=== PATIENT | male | born 2000 | race Caucasian/White ===

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

== ENCOUNTER 2023-12-31 20:49 | Emergency (ER) | payer OTHER, SELFPAY ==
[2023-12-31 21:02] VITALS: BP 137/73; PULSE 99; RESP 18; TEMP 36.9; O2SAT 97; BMI 29.0
--- NOTE | 2023-12-31 23:05 | PC.NURSE ---
PT in hallway bed, hives present on chest, back and trunk. PT denies any SOB, cough, wheeze, or nausea/vomiting. PT refused IV placement at this time and wishes to see provider first. PT is in no apparent distress.
--- NOTE | 2023-12-31 23:14 | ED.GENADULT ---
HPI - General Adult General Chief complaint: Allergic Reaction Stated complaint: allergic reaction, no epi. No known allergy Time Seen by Provider: 12/31/23 23:04 Source: patient Mode of arrival: ambulatory Limitations: no limitations History of Present Illness HPI narrative: 23 yold healthy male presents to the ED for generalized allergic reaction intermittently since . patient states generalized hives. patietn denies ever having swelling of lips, tongue, or sensatin of throat closing. patient denies any shortness of breath, fever, or chills. patient states symptoms started after girlfriedn used new detergents to clean clothes Related Data Previous Rx's Medication Instructions Recorded diphenhydramine HCl 25 mg capsule 25 mg PO TID PRN allergic reaction 01/01/24 (Benadryl) 7 days #21 caps famotidine 20 mg tablet (Pepcid) 20 mg PO BID 7 days #14 tabs 01/01/24 prednisone 20 mg tablet 40 mg (2 x 20 mg) PO DAILY 5 days 01/01/24 #10 tabs Allergies Allergy/AdvReac Type Severity Reaction Status Date / Time latex Allergy Mild Unknown Verified 12/31/23 21:01 Review of Systems Review of Systems: generalized ithcy hives Yes all other systems are reviewed and are negative PMFSH Social History Social History Smoked in Last 30 Days: No Use of substances other than those prescribed or required for medical reasons: No Advance Directives: No Advance Directives Information Provided: No Physical Exam ED Vital Signs: Vital Signs - 24 hr 12/31/23 21:02 Temperature 98.5 F Pulse Rate 99 Respiratory Rate 18 Blood Pressure 137/73 Pulse Oximetry 97 Oxygen Delivery Method Room Air BMI result Body Mass Index 29.0 Const General: cooperative, healthy appearing, comfortable, no acute distress, well developed, alert, awake and Physically active Orientation/consciousness: oriented to person, oriented to place, oriented to time and patient oriented x3 HENMT Other: negative for lip swelling, tongue swelling, uvula swelling, chest pain, or shortness of breath. Head: Yes normal to inspection, Yes No palpable skull fracture present, Yes normocephalic, Yes atraumatic and No abrasion Eyes General: appearance normal, both eyes and all related structures Neck Other: positive for hives Neck: Yes normal visual inspection, Yes full ROM, Yes no lymphadenopathy, Yes no meningeal signs, Yes trachea midline, Yes supple, No anterior neck swelling and No tender Chest Other: hives Chest palpation & inspection: normal inspection of the chest and normal palpation of entire chest wall Resp Effort & Inspection: normal respiratory effort and able to speak in complete sentences Auscultation: clear to auscultation bilaterally Cardio Jugular venous distension: no JVD Heart sounds: S1 normal heart sound present and S2 normal heart sound present GI Other: hives Inspection: Yes normal to inspection Palpation (GI): Soft to palpation, not firm, nontender, no guarding and not rigid General: Yes no CVA tenderness Back/Spine/Pelvis Back: no CVA tenderness and No back tenderness Skin General skin exam: no rashes or lesions noted, elasticity normal and turgor normal Neuro General: oriented to person, oriented to place, oriented to time, patient oriented x3, gait normal, tone normal, moves all extremities, Normal light touch and pain sensation, no meningeal signs, no focal motor deficits, CN's II-XI intact bilaterally and normal sensation to monofilament Extrem Other: positive for bilateral upper extremities hives General: Yes normal to inspection and Yes full ROM Psych Appearance: grossly normal, well kempt and not disheveled Medications Administered Discontinued Medications Generic Name Dose Route Start Last Admin Trade Name Freq PRN Reason Stop Dose Admin Diphenhydramine HCl 50 mg 12/31/23 23:12 12/31/23 23:19 Diphenhydramine Hcl 25 Mg Capsule PO 12/31/23 23:13 50 mg ONCE ONE Administration Famotidine 20 mg 12/31/23 23:12 12/31/23 23:19 Famotidine 20 Mg Tablet PO 12/31/23 23:13 20 mg ONCE ONE Administration Prednisone 60 mg 12/31/23 23:12 12/31/23 23:19 Prednisone 20 Mg Tablet PO 12/31/23 23:13 60 mg ONCE ONE Administration Medical Decision Making Medical Decision Making MDM Narrative: 23-year-old male presents to ED for allergic reaction intermittently since . Patient states having hives since 11:00 this morning and has been the same. Patient denies any shortness of breath or lip swelling. Patient stable. Will give Benadryl prednisone and Pepcid. 1:09pm. Patient to be discharged with Benadryl Pepcid and prednisone. Patient feels better. Hives improving. Patient explained worrisome sign informed to return to the ED for has them. Patient informed to follow-up with primary care provider Differential Diagnosis Differential Diagnoses: The differential diagnosis associated with the presentation includes (Allergic reaction, anaphylaxis, you to [place],) Admission/Observation Consideration of admission/observation: Escalation of care including admission/observation considered Independent Historian Clinical information obtained from an independent historian. History obtained from or confirmed by: Other (Patient) External Record Review External record reviewed: Other (Prior visits) Prescription Management I considered prescription management with: Other (Benadryl, prednisone, Pepcid) Discharge Plan Discharge Clinical Impression: Allergic reaction Patient Disposition: Home, Self-Care Instructions: General Allergic Reaction (ED) Additional Instructions: Return to the ED immediately for any swelling of lips, swelling of tongue, sensation of throat closing, chest pain, shortness of breath, worsening rash, fever, chills, any other concerning symptoms. Prescriptions: New prednisone 20 mg tablet 40 mg PO DAILY 5 Days Qty: 10 0RF diphenhydramine HCl [Benadryl] 25 mg capsule 25 mg PO TID PRN (Reason: allergic reaction) 7 Days Qty: 21 0RF famotidine [Pepcid] 20 mg tablet 20 mg PO BID 7 Days Qty: 14 0RF Referrals: [facility] [place] [facility] [Provider Group] (Allergic reaction) Stand Alone Forms: Work/School Release Interventions: ED Discharge Assessment Last Done: 01/01/24 01:37 Discharge Date/Time: 01/01/24 01:39 Print Language: Mosotho
[2023-12-31] MEDS: Famotidine 20 MG TABLET PO (23:19)
[2023-12-31] MEDS: diphenhydrAMINE HCL 25 MG CAPSULE 50 MG PO (23:19)
[2023-12-31] MEDS: predniSONE 20 MG TABLET 60 MG PO (23:19)
== END 2024-01-01 01:39 | disposition home or self-care (01) ==
PROVIDERS: Emergency Provider Internal Medicine
DX: L50.0 Allergic urticaria (principal)
CPT/HCPCS: 99283; 99284